=== PATIENT | male | born 1985 | race African-American/Black ===

== ENCOUNTER 2020-08-12 16:51 | Emergency (ER) | payer MEDICAID, OTHER ==
[2020-08-12 16:58] VITALS: BP 157/87
[2020-08-12] MEDS ORDERED: KETOROLAC TROMETHAMINE INJ/PF 30 MG/1 ML SDV IV ONE (17:12)
--- NOTE | 2020-08-12 17:26 | ER Document Report ---
ED General - General TRAVEL OUTSIDE OF THE [place] IN LAST 30 DAYS: No - General Chief Complaint: Back Pain Stated Complaint: BACK PAIN Time Seen by Provider: 08/12/20 17:01 Notes: Patient is a 35-year-old male presents emergency department with a chief complaint of back pain. Patient states that he was formally yesterday and he woke up this morning has had a sharp, stabbing pain in his left lower back. States that it radiates to the other side of his back. Denies doing any strenuous activity. Denies any past medical history. He does not take any medications on regular basis. (VIKKI CLEMENT) - Related Data Allergies/Adverse Reactions: No Known Allergies Allergy (Verified 08/12/20 17:00) Past Medical History - Social History Smoking Status: Never Smoker Frequency of alcohol use: None Drug Abuse: None Family History: Reviewed & Not Pertinent - Past Medical History Cardiac Medical History: Reports: Hx Hypertension - Immunizations Hx Diphtheria, Pertussis, Tetanus Vaccination: Yes Physical Exam - Vital signs Vitals: Temp Pulse Resp BP Pulse Ox 98.7 F 72 20 157/87 H 100 08/12/20 16:57 08/12/20 16:57 08/12/20 16:57 08/12/20 16:57 08/12/20 16:57 Course - Vital Signs Vital signs: Temp Pulse Resp BP Pulse Ox 98.7 F 72 20 157/87 H 100 08/12/20 16:57 08/12/20 16:57 08/12/20 16:57 08/12/20 16:57 08/12/20 16:57 - Laboratory Results Laboratory Results Interpreted: 08/12/20 17:30 Urine Protein 30 H Urine Urobilinogen 2.0 H
[2020-08-12] MEDS ORDERED: KETOROLAC TROMETHAMINE 60 MG/2 ML SDV IM ONE (17:30)
[2020-08-12 18:12] LABS: APPEARANCE,URINE CLEAR; BILIRUBIN,URINE NEGATIVE (NEGATIVE); COLOR,URINE YELLOW; GLUCOSE, URINE NEGATIVE (NEGATIVE); KETONES,URINE NEGATIVE (NEGATIVE); PROTEIN,URINE 30 mg/dL (NEGATIVE); URINE SPECIFIC GRAVITY 1.026
--- NOTE | 2020-08-12 18:34 | RADIOLOGY REPORT (SQ) ---
EXAM DESCRIPTION: CT ABD/PELVIS NO ORAL OR IV IMAGES COMPLETED DATE/TIME: 08/12/2020 4:53 pm REASON FOR STUDY: eval stone; Left flank/low back pain. COMPARISON: None. TECHNIQUE: CT scan of the abdomen and pelvis performed without intravenous or oral contrast. Images reviewed with lung, soft tissue, and bone windows. Reconstructed coronal and sagittal MPR images revi ewed. All images stored on PACS. All CT scanners at this facility use dose modulation, iterative reconstruction, and/or weight based d osing when appropriate to reduce radiation dose to as low as reasonably achievable (ALARA). [facility]: Dose Right [facility]: CareDose [facility]: Dose Right [facility]: Teradose 4D [facility]: Smart [employer] [place] RADIATION DOSE: CT Rad equipment meets quality standard of care and radiation dose reduction techniq ues were employed. CTDIvol: 19.2 mGy. DLP: 1077 mGy-cm.mGy. LIMITATIONS: None. FINDINGS: LOWER CHEST: No significant findings. No nodules or infiltrates. NON-CONTRASTED LIVER, SPLEEN, ADRENALS: Evaluation limited by lack of IV contrast. No identified sign ificant masses. PANCREAS: No masses. No peripancreatic inflammatory changes. GALLBLADDER: No identified stones by CT criteria. No inflammatory changes to suggest cholecystitis. RIGHT KIDNEY AND URETER: No suspicious masses. Assessment limited by lack of IV contrast. No signif icant calcifications. No hydronephrosis or hydroureter. LEFT KIDNEY AND URETER: No suspicious masses. Assessment limited by lack of IV contrast. No signifi cant calcifications. No hydronephrosis or hydroureter. AORTA AND RETROPERITONEUM: No aneurysm. No retroperitoneal masses or adenopathy. BOWEL AND PERITONEAL CAVITY: No obvious masses or inflammatory changes. No free fluid. APPENDIX: Normal. PELVIS, BLADDER, AND ABDOMINAL WALL:No abnormal masses. No free fluid. Bladder normal. BONES: No significant findings. OTHER: No other significant finding. IMPRESSION: NO SIGNIFICANT OR ACUTE PROCESS IN THE ABDOMEN OR PELVIS. COMMENT: Quality ID # [id number]: Final reports with documentation of one or more dose reduction techniques (e.g., Automated exposure control, adjustment of the mA and/or kV according to patient size, use of iterative reconstruction technique) TECHNICAL DOCUMENTATION: JOB ID: [id number] 2010 [employer]- All Rights Reserved Reading location - IP/workstation name: [id number]
--- NOTE | 2020-08-12 18:45 | ER Document Report ---
ED Neck/Back Problem - General Chief Complaint: Back Pain Stated Complaint: BACK PAIN Time Seen by Provider: 08/12/20 17:01 Notes: Patient is a 35-year-old male who presents emergency department with a chief complaint of left back pain. Patient states that he woke up this morning and had a sharp, stabbing pain to his left lower back. States that he has never felt this pain before. Denies any loss of bladder or bowel function, IV drug use, saddle anesthesia, or any other symptoms. Denies any past medical history. He does not take any medications. TRAVEL OUTSIDE OF THE [place] IN LAST 30 DAYS: No - Related Data Allergies/Adverse Reactions: No Known Allergies Allergy (Verified 08/12/20 17:00) Past Medical History - Social History Smoking Status: Never Smoker Frequency of alcohol use: None Drug Abuse: None Family History: Reviewed & Not Pertinent - Past Medical History Cardiac Medical History: Reports: Hx Hypertension - Immunizations Hx Diphtheria, Pertussis, Tetanus Vaccination: Yes Review of Systems - Review of Systems Notes: REVIEW OF SYSTEMS: CONSTITUTIONAL : Denies recent illness. Denies recent unintentional weight loss. Denies fever, chills, or sweats. EENT: Denies eye, ear, throat, or mouth pain, discharge, or symptoms. Denies nasal or sinus congestion. CARDIOVASCULAR: Denies chest pain. RESPIRATORY: Denies shortness of breath, cough, congestion, difficulty breathing, or wheezing. GASTROINTESTINAL: Denies nausea, vomiting, and diarrhea. Denies abdominal pain. Denies constipation. GENITOURINARY: Denies difficulty urinating, burning, blood in urine, urgency or frequency. MUSCULOSKELETAL: See HPI. Denies joint pain or swelling. SKIN: Denies rash, itchiness, or lesions HEMATOLOGIC : Denies easy bruising or bleeding. LYMPHATIC: Denies swollen, painful, enlarged glands. NEUROLOGICAL: Denies no numbness or tingling denies weakness. Denies headache. Denies altered mental status. Denies alteration in speech. PSYCHIATRIC: Denies stress, anxiety, alteration in sleep patterns, or depression. All other systems reviewed and negative. Physical Exam - Vital signs Vitals: Temp Pulse Resp BP Pulse Ox 98.7 F 72 20 157/87 H 100 08/12/20 16:57 08/12/20 16:57 08/12/20 16:57 08/12/20 16:57 08/12/20 16:57 - Notes Notes: PHYSICAL EXAMINATION: GENERAL: Appears well, healthy, well-nourished, no acute distress. HEAD: Normocephalic, atraumatic. EYES: PERRL, conjunctiva normal, all extraocular movements intact, sclera nonicteric ENT: Moist mucous membranes. NECK: Supple, no noticeable swelling, redness, rash. Normal range of motion. LUNGS: Equal breath sounds bilaterally and clear to auscultation. No wheezes rales or rhonchi. CARDIOVASCULAR: S1-S2, regular rate, regular rhythm. Radial pulses 2+, normal. ABDOMEN: Normoactive bowel sounds. Soft, nontender, no guarding, no rebound tenderness, and no masses palpated. EXTREMITIES: Normal strength and range of motion, no pitting or edema. No cyanosis. NEUROLOGICAL: Moves all extremities upon command. Strength 5/5 in all extremities. PSYCH: Normal mood, normal affect. SKIN: Warm, dry. No rash, lesions, ulcerations noted. Normal skin turgor. BACK: Left CVA/low back tenderness upon percussion. Course - Re-evaluation Re-evalutation: 08/12/20 18:43 CT of the abdomen pelvis does not show any stones. This is according to the radiologist read. Urinalysis shows protein in the urine. Patient reports that he does feel better after receiving the Toradol. Unfortunately, labs were not drawn due to the patient being hard stick. At this time, I feel safe to discharge the patient home. He will follow up with primary care provider. He is in agreement with this plan. Follow-up precautions were given. Verbal discharge instructions were given to the patient. They verbalized understanding. They are stable for discharge. - Vital Signs Vital signs: Temp Pulse Resp BP Pulse Ox 98.7 F 72 20 157/87 H 100 08/12/20 16:57 08/12/20 16:57 08/12/20 16:57 08/12/20 16:57 08/12/20 16:57 - Laboratory Results Laboratory Results Interpreted: 08/12/20 17:30 Urine Protein 30 H Urine Urobilinogen 2.0 H Critical Laboratory Results Reviewed: No Critical Results - Radiology Results Critical Radiology Results Reviewed: No Critical Results Discharge - Discharge Clinical Impression: Pain, low back Qualifiers: Chronicity: acute Back pain laterality: left Sciatica presence: without sciatica Qualified Code(s): M54.5 - Low back pain Condition: Stable Disposition: HOME, SELF-CARE Instructions: Low Back Pain ([facility]), Muscle Strain ([facility]) Additional Instructions: You were seen today in the emergency department for back pain. Your back pain is most consistent with back muscle pain. You may take Toradol and acetaminophen 1000 mg every 6 hours as needed for the pain. Do not take ibuprofen. You can use the lidocaine patches, or you may also buy [id number] Aspercreme with lidocaine and apply to the area per box instructions. If you develop a fever greater than 100.4 F, lose bowel or bladder function, are unable to walk, or have any symptoms that are worrisome to you, please return to the emergency department.. Prescriptions: Lidocaine [Lidoderm 5% (700 mg) Transdermal Patch] 1 patch TP ASDIR PRN #10 adh..patch PRN Reason: Ketorolac Tromethamine [Toradol 10 mg Tablet] 10 mg PO Q6HP PRN #20 tablet PRN Reason:
--- OUTSIDE RECORDS SUMMARY | 2020-08-15 10:37 | XMS REPORT ---
:1985 [facility] [address] [place] [address] Care Team Providers Name Role Phone JOHN RIVERA Primary Care Physician Unavailable EDA MARTINES Attending Clinician Unavailable EMERGENCY Admitting Clinician Unavailable Allergies, Adverse Reactions, Alerts This patient has no known allergies or adverse reactions. Medications This patient has no known medications. Problems This patient has no known problems. Procedures This patient has no known procedures. Results Test Description Test Time Test Comments Text Results Atomic Results Result Comments SARS-CoV-2 RNA Resp Ql OLIVIA+probe 2020-06-03 00:00:00 Test Item Value Reference Range Comments SARS-CoV-2 RNA Resp Ql OLIVIA+probe Not detected [facility] Case ID: (test code = 05089-4) [id number] SARS-CoV-2 RNA Resp Ql [id number] 00:00:00 Test Item Value Reference Range Comments SARS-CoV-2 RNA Resp Ql Not detected [facility] Case OLIVIA+probe (test code = ID: 15338 [id number] 23491-3) 2018-nCoV RNA XXX [id number] 00:00:00 Test Item Value Reference Range Comments 2019-nCoV RNA XXX Not detected [facility] Case OLIVIA+probe-Imp (test code = ID: [id number]) Encounters Start End Encounter Admission Attending Care Care Encounter Date/Time Date/Time Type Type Clinicians Facility Department ID 2020-08-07 2020-08-07 Emergency X GRACE MARTINES [id number] 21:17:00 21:50:00 ANITHA 2019-11-19 2019-11-19 [facility] [id number] 10:45:32 10:45:32 Payers Payer Name Policy Type Policy Number Effective Date [facility]piration [id number] Social History This patient has no known social history. Vital Signs This patient has no known vital signs.
== END 2020-08-12 18:50 | disposition home or self-care (01) ==
LOC: ER 16:51
DX: M54.5 Low back pain (principal); R10.9 Unspecified abdominal pain; I10 Essential (primary) hypertension
CPT/HCPCS: 99285; 96372; 81001; 74176; J1885